=== PATIENT | male | born 1995 | race African-American/Black ===

== ENCOUNTER 2016-10-24 19:37 | Emergency (ER) | payer OTHER ==
[2016-10-24 19:48] VITALS: BP 127/79; PULSE 84; RESP 20; TEMP 98.5; O2SAT 96
[2016-10-24] MEDS ORDERED: IBUP-232 PO (19:49)
--- NOTE | 2016-10-24 19:54 | PD ---
HPI Chief Complaint: Injury Time Seen by Provider: 19:49 Travel History International Travel<30 days: No Contact w/Intl Traveler<30days: No Traveled to known affect area: No History of Present Illness HPI 21-year-old black male presents to emergency Department in police custody for medical clearance to go to senior living. According police the subject was attempting to evade arrest and accidentally ran into a palm tree with his left side. The patient then got up and ran again, until another officer threatened to shoot him with a Taser when he gave up. The patient here states that he does not know why he is hurting. He is very vague. He first doesn't know his name. He also states that he initially didn't know his age. The patient is declining to assist with his medical evaluation. [facility] Past Medical History Medical History: Denies Significant Hx Tetanus Vaccination: < 5 Years Past Surgical History Narrative Surgical Tonsillectomy Social History Alcohol Use: Yes Tobacco Use: Yes Allergies-Medications (Allergen,Severity, Reaction): Coded Allergies: No Known Allergies (Unverified , 10/24/16) Reported Meds & Prescriptions Reported Meds & Active Scripts Active Ibuprofen 600 Mg Tab 600 Mg PO Q6H PRN Review of Systems ROS Limitations: Poor Historian Physical Exam Narrative GENERAL: This is a well-developed well-nourished young black male in no acute distress. He is accompanied by PD. He has handcuffs on both his hands and feet. SKIN: Warm and dry. Intact. No abrasions or ecchymosis. HEAD: Atraumatic. Normocephalic. EYES: Pupils equal and round. No scleral icterus. No injection or drainage. ENT: No nasal bleeding or discharge. Mucous membranes pink and moist. NECK: Trachea midline. No JVD. CARDIOVASCULAR: Regular rate and rhythm. No murmur appreciated. RESPIRATORY: No accessory muscle use. Clear to auscultation. Breath sounds equal bilaterally. GASTROINTESTINAL: Abdomen soft, non-tender, nondistended. Hepatic and splenic margins not palpable. MUSCULOSKELETAL: No obvious deformities. No clubbing. No cyanosis. No edema. Patient has myofascial tenderness over the left hip. He has full range of motion. There is no bony tenderness to palpation of the greater trochanter, knee, ankle, foot. The patient is able to stand at bedside. The right lower extremity as well as upper extremity is unremarkable. He has good sensation and good pulses. NEUROLOGICAL: Awake and alert. No obvious cranial nerve deficits. Motor grossly within normal limits. Normal speech. PSYCHIATRIC: Appropriate mood and affect; insight and judgment normal. Data Data Last Documented VS Vital Signs Date Time Temp Pulse Resp B/P Pulse Ox O2 Delivery O2 Flow Rate FiO2 10/24/16 19:49 Room Air 10/24/16 19:48 98.5 84 20 127/79 96 Orders Ibuprofen (Motrin) (10/24/16 20:00) [facility] Medical Decision Making Medical Screen Exam Complete: Yes Emergency Medical Condition: Yes Medical Record Reviewed: Yes Differential Diagnosis MDM: High Differential diagnoses: Fracture, sprain, strain, dislocation, contusion, neurovascular injury Narrative Course The patient's exam is unremarkable except for some mild soft tissue tenderness over the left buttocks and hip. The patient's cooperation is very limited. He is very vague and he initially gives false information regarding his name and age. I suspect there is a large malingering component to this. When the patient is distracted he does not appear to have any significant discomfort. I do not believe that any imaging is indicated at this time. The skin is intact. There is no evidence of skin breakdown or bruising. Patient's given Motrin 600 mg by mouth and he is medically cleared to go to senior living. This is left hip contusion Diagnosis Primary Impression: Contusion of left hip Patient Instructions: General Instructions Additional Instructions: Rest. Ice for the next 3 days followed by heat . Ibuprofen. Follow-up with a primary care doctor in one week. Return to the ER for emergencies. Medically cleared to go to senior living. Scripts Ibuprofen 600 Mg [id number] Mg PO Q6H PRN (Pain/Inflammation) #28 TAB Prov:Eric Corey MD 10/24/16 Disposition: [address] LAW ENFORCEMNT Condition: Stable Taras Rice Oct 24, 2016 19:54
[2016-10-24] MEDS ORDERED: IBUPROFEN 600 MG TAB PO ONE (20:00)
== END 2016-10-24 20:03 ==
LOC: NEPB 19:37
DX: S70.02XA Contusion of left hip, initial encounter (principal); Z72.0 Tobacco use; W22.09XA Striking against other stationary object, initial encounter; Y93.02 Activity, running
CPT/HCPCS: 99282